=== PATIENT | male | born 1990 | race Caucasian/White ===

== ENCOUNTER 2022-01-25 19:24 | Emergency (ER) | payer OTHER ==
[~2022-01-25 19:24] MED LIST: MOTRIN600 MG PO; ZPAK PO
[2022-01-25] MEDS ORDERED: NORCO 5-325 TA1 EACH PO (21:57)
== END 2022-01-25 22:17 | disposition home or self-care (01) ==
LOC: FER 19:24
DX: S06.0X0A Concussion without loss of consciousness, initial encounter (principal); S00.12XA Contusion of left eyelid and periocular area, initial encounter; S00.11XA Contusion of right eyelid and periocular area, initial encounter; F17.210 Nicotine dependence, cigarettes, uncomplicated; Y04.0XXA Assault by unarmed brawl or fight, initial encounter
CPT/HCPCS: 70450; 70486; 72125

== ENCOUNTER 2022-04-21 23:15 | Emergency (ER) | payer SELFPAY ==
[~2022-04-21 23:15] MED LIST changes: +NORCO 5-325 TA1 EACH PO
[2022-04-22 00:29] LABS: ALBUMIN 4.5 g/dL (3.4-5.0); BILIRUBIN - TOTAL 0.4 mg/dL (0.2-1.0); BUN/CREAT RATIO (CALC) 14.3 RATIO; CREATININE 1.19 mg/dL (0.67-1.17); GLOBULIN (CALCULATION) 3.3 g/dL; POTASSIUM 3.2 mmol/L (3.5-5.1); TOTAL PROTEIN 7.8 g/dL (6.4-8.2)
[2022-04-22 00:39] LABS: BASOPHIL 0.9 % (0-2); HCT 43.8 % (42.0-52.0); HGB 15.4 g/dl (13.2-18.0); LYMPHOCYTE 31.9 % (15-48); MCH 31.3 pg (25.0-31.0); MCHC 35.2 g/dL (32.0-36.0); MONOCYTE 7.8 % (0-12); MPV 12.2 fL (6.0-9.5); NEUTROPHIL 55.2 % (41-80); NRBC 0; PLT 255 K/uL (150-400); RBC 4.92 M/uL (4.70-6.00); RDW 13.1 % (11.5-14.0); WBC 10.1 K/uL (4.0-10.5)
== END 2022-04-22 03:20 | disposition home or self-care (01) ==
LOC: FER 23:15
PROVIDERS: Internal Medicine
DX: R07.89 Other chest pain (principal); F17.210 Nicotine dependence, cigarettes, uncomplicated; Z28.310 Unvaccinated for COVID-19
CPT/HCPCS: 36415; 71045; 80053; 84484; 85025; 85379; 93005